=== PATIENT | female | born 1975 | race Caucasian/White ===

== ENCOUNTER 2025-03-09 05:31 | Observation (INO) ==
--- NOTE | 2025-03-05 10:01 | Anesthesiology Consultation ---
Date of Service March 05, 2025 Assessment & Plan (1) Encounter for pre-operative examination: - check urine test STAT am DOS. - potential difficult intubation: Per PAT RN discussion with patient s/p cervical spine surgery "unsure of numbers, can't tilt head back for too long, gets dizzy, side to side is slightly limited" - Per cracker sprayer on 03/05/25: No known infectious disease contacts, current infectious disease symptoms in past 10 days or COVID positive test result in the past 30 days. Chart Review Chart Review: Acceptable Risk for Surgery and Patient NOT seen in Pre Admission Testing History Surgery Operation Date: 03/09/25 07:00 Proposed Procedures p Total Laparoscopic Hysterectomy, Bilateral Salpingectomy and Cystoscopy, Possible Laparotomy as Indicated in any Procedure - Jeremy Cornejo MD Height/Weight Height: 5 ft 1 in Weight: 78.925 kg Allergies Allergy/AdvReac Type Severity Reaction Status Date / Time Corticosteroids Allergy Intermediate heart Verified 03/05/25 07:35 (Glucocorticoids) races, short of breath duloxetine [From Cymbalta] Allergy Intermediate heart Verified 03/05/25 07:35 races, short of breath latex Allergy Intermediate swelling Verified 03/05/25 07:33 at the site tree nut Allergy Intermediate Difficulty Verified 03/05/25 07:43 Breathing Medications Home Medications Medication Instructions Recorded Confirmed Last Taken xoqiygw-hwkbgzluyvofq-ukenugss 250 1 tab PO Q6H PRN Pain 03/05/25 03/05/25 Unkno wn mg-250 mg-65 mg tablet (Excedrin Extra Strength) omeprazole 40 mg capsule,delayed 40 mg PO QAM 03/05/25 03/05/25 Unknown release Past Medical History Medical History (Updated 03/05/25 @ 09:56 by Nighat Cantu PA-C) Anemia History of anxiety no meds at present Migraines Past Family History Family History Grandmother (Paternal) Diabetes Past Surgical History Surgical History History of colonoscopy History of endometrial ablation History of esophagogastroduodenoscopy (EGD) History of lumbar surgery repair broken disc Hx of foot surgery right x2 S/P cervical spinal fusion unsure of numbers, can't tilt head back for too long, gets dizzy, side to side is slightly limited Social History Smoking Status: Former smoker Do You Dip or Chew Tobacco: No Smoking End Date: 18 yrs ago Hx Alcohol Use: No Hx Substance Use: No substance use type: does not use Testing Laboratory Results 02/22/25 WBC: 8.1 H/H: 13/41 PLATELETS: 355,000 Cervical Spine Date: 09/28/24 Intact anterior cervical diskectomy [sic] and fusion at C5-7 performed with plate and locking screw fixation. No dynamic instability
[2025-03-09] MEDS: LACTATED RINGER'S 1,000 ML IV SCH (05:36)
[2025-03-09] MEDS: LR 15ML/HR IV SCH ×2 (06:09)
[2025-03-09] MEDS: metroNIDAZOLE 500 MG/100 ML BAG IV SCH (06:36)
[2025-03-09] MEDS ORDERED: ROCURONIUM BROMIDE 10 MG/ML 5 ML VIAL IV ONE ×2 (06:42→07:47)
[2025-03-09] MEDS ORDERED: MIDAZOLAM HCL 1 MG/ML 2ML VIAL ONE (06:42)
[2025-03-09] MEDS ORDERED: PROPOFOL IV EMULSION 10 MG/ML 20 ML VIAL IV ONE (06:42)
[2025-03-09] MEDS ORDERED: ONDANSETRON INJ 2 MG/ML 2 ML VIAL ONE (06:42)
[2025-03-09] MEDS ORDERED: SUGAMMADEX SODIUM 200 MG/2 ML VIAL IV ONE ×2 (06:42→07:55)
[2025-03-09] MEDS ORDERED: ONDANSETRON INJ 2 MG/ML 2 ML VIAL IV PRN ×2 (06:47→10:30)
[2025-03-09] MEDS ORDERED: PROMETHAZINE HCL 6.25 MG in SODIUM CHLORIDE 0.9% 50 ML IV PRN (06:47)
[2025-03-09] MEDS ORDERED: ATROPINE SULFATE 0.1 MG/ML 10ML SYR IV PRN (06:47)
--- NOTE | 2025-03-09 07:03 | History & Physical Bridge Note ---
Date of Service March 09, 2025 History & Physical Bridge Note I have examined the patient, reviewed the History & Physical and in the interval since the performance of the History & Physical I have noted the following changes of clinical significance: no changes noted
[2025-03-09] MEDS ORDERED: KETAMINE HCL 10MG/ML SYR ONE (07:17)
[2025-03-09] MEDS ORDERED: METHYLENE BLUE 0.5% 10 ML VIAL ONE (09:28)
[2025-03-09] MEDS: FLOSEAL HEMOSTATIC MATRIX 5ML TOP ONE (09:50)
[2025-03-09] MEDS: FLOSEAL HEMOSTATIC MATRIX 10ML TOP ONE (09:51)
[2025-03-09] MEDS: BUPIVACAINE/EPINEPHRINE 0.5% MPF 1:200,000 30 ML VIAL ONE (10:06)
[2025-03-09] MEDS ORDERED: MAGNESIUM HYDROXIDE SUSP 30 ML UDC PO PRN (10:30)
[2025-03-09] MEDS: HYDROmorphone INJ 2 MG/ML SYR/VIAL IV PRN (10:35)
--- NOTE | 2025-03-09 10:41 | Operative Report ---
Post Operative Report Pre & Post Diagnosis Operation Date: 03/09/25 07:00 Pre-Op Diagnosis: Menorrhagia, Failed Endometrial Ablation Post-Op Diagnosis: Menorrhagia, Failed Endometrial Ablation I identified the patient and participated in the time-out.: Yes Procedure Operation Date: 03/09/25 07:00 Actual Procedures p Total Laparoscopic Hysterectomy, Bilateral Salpingectomy and Cystoscopy(Not Applicable) - Jeremy Cornejo MD Surgeon Jeremy Cornejo MD Devil Dog Garcia irby Estimated Blood Loss 10 Findings See Below Normal female escutcheon. No lesions in the vagina or vulva. Cervix appear grossly normal. Laparoscopic findings showed 16 weeks size uterus . Left and right ovaries appear grossly normal. The left fallopian tube was dilated appeared to have hydrosalpinx. Both ovaries had dark colored filled cyst consistent with endometriomas on them. Appendix appeared grossly normal both ureters were seen and identified. There were no adhesions in the pelvis or in the abdomen. Fluids IVF: 1000ml Uirne 350ml EBL: 10ml Specimens Uterus cervix and right fallopian tube. Left fallopian tube Drains None Anesthesia Type General Complications None Indications 1. Menorrhagia 2. Fibroid uterus 3. Failed endometrial ablation Description of Procedure FINDINGS: DESCRIPTION OF PROCEDURE: The patient was prepped and draped in normal sterile fashion in the dorsal lithotomy position. Saenz catheter was placed without difficulty. An AdvincMachinima uterine manipulator was placed in the uterus to help with colpotomy. Attention was paid to the abdominal part of the procedure where a supraumbilical incision was made and carried down to the fascia. Rob was used to grab the f ascia. Veress needle was introduced into the abdomen at a 45-degree angle while tenting up the abdomen. Intra-abdominal placement was confirmed with a water- filled syringe. A water drop and suction test was performed. The abdomen was insufflated with CO2 gas. The Veress needle was removed and a 5 mm non bladed trocar was attached to a laparoscope was introduced into the abdomen under direct visualization. This was a non bladed trocar. Once inside the abdomen, laparoscope was repositioned. Inspection of the abdomen shows the findings as dictated above. Three more accessory ports were placed, two 5 mm accessory ports were placed in the lower abdomen on the contralateral side, in addition, an 11 mm trocar was placed on the left upper quadrant. General inspection of the abdomen and pelvis was performed as dictated above. There were no adhesion in the abdomen. .16-week uterus fibroid filled d the pelvic cavity. Thyroid examination of the abdomen and pelvis was performed. Left and right fallopian tubes, the ureters, uterosacrals, bowels were examined and identified. LigaSure was passed through the left accessory port. The fallopian tube was identified and grabbed 4 cm from the cornua of the uterus with the LigaSure and transected. This was followed by opening of the left anterior leaf of the broad ligament. This allowed for fenestration of the posterior left broad ligament. The mid-section of the left fallopian tube, utero-ovarian and meso-ovarian pedicles were transected as well. Same procedure was performed on the contralateral side. The anterior broad ligament dissection was carried to the mid-section of the vesicouterine peritoneum over the bladder using the Harmonic scalpel. Same procedure was carried out on the contralateral side. The posterior broad ligament peritoneum was carefully dissected also from both sides over the uterosacral arch in order to displace the ureters laterally. Using traction and countertraction, the [place] retractor and irrigation probe was used to further dissect the bladder off the lower segment of the uterus. Bladder pillars and pubovesical fascia was dissected as well. Harmonic scalpel was used to obtain hemostasis where needed. Uterine manipulator was now palpable over the vaginal tissue. The right uterine pedicles were skeletonized and coagulated with the LigaSure. Good hemostasis was obtained. Same procedure was performed on the contralateral side. Cardinal ligaments were transected on both sides. Once good hemostasis was obtained, colpotomy was performed using the LigaSure hook from both sides. Uterus was removed through the vagina while still attached to the uterine manipulator. The bulb was attached to the uterine manipulator was reinserted into the vagina to establish pneumoperitoneum. With a grasper, the remaining section of the left ovary and tube were positioned anteromedially. The left fallopian tube is grabbed with ligature and transected. The transection is done close to the fallopian tube in order to preserve the ovarian vascular integrity. The left fallopian tube is removed through the 11 mm port leaving the left ovary intact. Same procedures performed on the right adnexa. The right fallopian tube is also removed once again leaving the right ovary behind.Right fallopian tube specimen is also removed through the 11 mm port. Both fallopian tube specimens sent to pathology for pathological analysis EndoStitch closure device was passed through the 11 mm port on the left. Using the [place] grasper for traction, colpotomy closure was performed. The uterosacral ligaments incorporated into the closure in order to decrease the risk of prolapse. Lapro ties were used with the EndoStitch. The 11-mm trocar site was closed with a Yung-Sánchez under direct visualization. Attention was paid to the cystoscopy part of the procedure where a cystoscope was introduced into the bladder. There are no sutures seen in the bladder. There were no gross blood seen in the bladder as well. The bubble sign is noted showing the bladder was a close cavity. Both ureters were seen and there was efflux from both uterus. The skin incisions are closed with Dermabond, except for the 11-mm trocar site, which was closed with 4-0 Monocryl. The patient was returned to recovery in stable condition. Inspection of the vagina shows the vaginal cuff was intact. All instruments were removed from the vagina and the bladder and accounted for x2. I attest to the content of the Intraoperative Record and any orders documented therein. Any exceptions are noted below. Devil Dog was necessary for retraction and manipulation of instruments in order to provide for a safe operation
--- NOTE | 2025-03-09 11:14 | Anesthesiology Progress Note ---
Date of Service March 09, 2025 Anesthesia Post Procedure Vital Signs Vital Signs: Temp Pulse Pulse Resp BP BP Pulse Ox 03/09/25 11:00 36.7 C 93 H 12 114/68 100 03/09/25 10:50 96 H 16 125/61 100 03/09/25 10:40 87 12 114/75 100 03/09/25 10:30 79 18 119/70 100 03/09/25 10:20 36.1 C L 96 H 14 136/80 100 03/09/25 05:50 37 C 93 H 18 144/75 H 97 O2 Del Method O2 Flow Rate 03/09/25 11:00 Nasal Cannula 2 03/09/25 10:50 Oxymask 3 03/09/25 10:40 Oxymask 4 03/09/25 10:30 Oxymask 6 03/09/25 10:20 Oxymask 6 03/09/25 05:50 Room Air Pain Intensity Left Abdomen: Pain Intensity: 4 Abdomen: Pain Intensity: 5 Transfer of Care Handoff Completed per policy Notes Mental Status: alert / awake / arousable and participated in evaluation Patient Amnestic to Procedure: Yes Nausea / Vomiting: adequately controlled Pain: adequately controlled Airway Patency, RR, SpO2: stable & adequate BP & HR: stable & adequate Hydration State: stable & adequate Anesthetic Complications: no major complications apparent
[2025-03-09] MEDS: KETOROLAC 30 MG/ML VIAL IV PRN (12:05)
[2025-03-09] MEDS: IBUPROFEN 600 MG TAB PO PRN (23:38)
[2025-03-10 08:10] LABS: Hematocrit (blood only) 34.9 % (37.0-47.0); Hemoglobin 11.3 g/dl (12.0-16.0); Immature Granulocytes # (auto) 0.02 K/uL (0.01-0.20); Immature Granulocytes % (auto) 0.2 %; Mean Corpuscular Hemoglobin 29.7 pg (25.0-34.0); Mean Corpuscular Volume 91.6 fL (80.0-100.0); Platelet Count 248 K/uL (130-400); RDW Standard Deviation 41.9 fL (36.4-46.3); Red Blood Count 3.81 M/uL (4.20-5.40); White Blood Count 10.11 K/ul (4.8-10.8)
[2025-03-10 08:24] LABS: Anion Gap 5.0 (3-11); Blood Urea Nitrogen 9.0 mg/dl (6-23); Calcium 8.2 mg/dl (8.6-10.3); Carbon Dioxide 25.0 mmol/L (21-32); Chloride 105.0 mmol/L (98-107); Creatinine Clr Calc Pharmacy 73.7 ml/min; Glucose 121.0 mg/dl (70-99(Fasting)); Potassium 3.7 mmol/L (3.5-5.1); Sodium 135.0 mmol/L (136-145)
[2025-03-10 08:32] VITALS: BP 113/68; RESP 20; TEMP 98.2; O2SAT 98
--- NOTE | 2025-03-10 10:11 | Gynecologic Progress Note ---
Date of Service March 10, 2025 Assessment & Plan (1) Postop check: Admission and Anticipated Discharge Date Admission Date: March 09, 2025 Subjective Pt doing well No comaplaints stable labs and vital d/c home with instructions Physical Exam Constitutional: WD/WN, vitals as above Eyes: PERRL, conjunctivae normal, anicteric sclerae ENMT: external ear and nose normal, oropharynx normal Neck: trachea midline, no thyromegaly Respiratory: normal respiratory effort, lungs clear to auscultation Cardiovascular: RRR, no murmur, no edema Chest (Breasts): normal inspection/palpation of breasts Gastrointestinal (Abdomen): normal bowel sounds, soft, nontender, no hepatosplenomegaly Musculoskeletal: no cyanosis or clubbing, extremities motor strength 5/5 Skin: + incision (Incision clean,dry and intac t) Neurologic: patellar DTR's 2+ bilat, sensation intact Psychiatric: A+Ox3, euthymic affect Genitourinary: no vaginal lesions, no adnexal mass Lymphatic: no cervical or axillary lymphadenopathy Results & Data Vital Signs (Past 12 Hours) Vital Signs Temp Pulse Resp BP Pulse Ox O2 Del Method 03/10/25 08:00 36.8 C 92 H 20 113/68 98 Room Air 03/10/25 04:30 37.1 C 84 16 102/65 96 Room Air 03/09/25 23:30 37.0 C 88 18 114/72 97 Room Air
--- NOTE | 2025-03-10 10:14 | Discharge Summary ---
Date of Service March 10, 2025 Admission HPI Per Admitting Provider Patient is a 49-year-old who underwent total laparoscopic hysterectomy and bilateral salpingo-oophorectomy for menorrhagia on March 09, 2025.. Patient is status post failed endometrial ablation. Surgery was unremarkable details of surgeries in the operative note. Patient was kept overnight for observation. This morning has stable vitals she is tolerating p.o. food and medication and is being discharged home in stable condition. Discharge Data Procedures Performed Operation Date: 03/09/25 07:00 Actual Procedures p Total Laparoscopic Hysterectomy, Bilateral Salpingectomy and Cystoscopy(Not Applicable) - Jeremy Cornejo MD Hospital Course (1) Postop check: Plan Post op course was unremarkable and pt is discharges home in stable condition. Discharge instructions including medications,diet, activity and follow up appointments are reviewed with pt.
[2025-03-10 10:21] VITALS: PULSE 93
== END 2025-03-10 11:00 | disposition home or self-care (01) ==
LOC: 4E1 05:31 → ASU 05:31